=== PATIENT | female | born 1990 | race Caucasian/White ===

== ENCOUNTER 2017-01-29 08:27 | Emergency (ER) | payer SELFPAY ==
[2017-01-29 08:56] LABS: Basophils % (Auto) 0.8 % (0.0-1.8); Eosinophils % (Auto) 5.4 % (0.0-4.3); Hematocrit 42.9 % (30.3-42.9); Hemoglobin 13.9 gm/dl (10.1-14.3); Mean Corpuscular HGB Conc 32 % (30-34); Mean Corpuscular Hemoglobin 28 pg (28-32); Mean Corpuscular Volume 86 fl (79-97); Platelet Count 219 K/mm3 (140-440); Red Blood Count 5.01 M/mm3 (3.65-5.03); Red Cell Distribution Width 13.8 % (13.2-15.2); White Blood Count 6.5 K/mm3 (4.5-11.0)
[2017-01-29 09:21] LABS: Alanine Aminotransferase 14 units/L (7-56); Albumin 4.3 g/dL (3.9-5); Albumin/Globulin Ratio 1.7 %; Alkaline Phosphatase 62 units/L (35-129); Anion Gap 16 mmol/L; Blood Urea Nitrogen 9 mg/dL (7-17); Calcium 8.8 mg/dL (8.4-10.2); Carbon Dioxide 24 mmol/L (22-30); Chloride 102.5 mmol/L (98-107); Glucose 94 mg/dL (65-100); Lipase 30 units/L (13-60); Potassium 4.1 mmol/L (3.6-5.0); Sodium 138 mmol/L (137-145); Total Protein 6.8 g/dL (6.3-8.2)
[2017-01-29 09:33] LABS: Bacteria,Urine 1+ /HPF (Negative); Bilirubin,Urine NEG (Negative); Blood,Urine NEG (Negative); Ketones,Urine NEG (Negative); Leukocyte Esterase,Urine NEG (Negative); Nitrite,Urine NEG (Negative); Protein,Urine <15 mg/dL mg/dL (Negative); Urobilinogen,Urine < 2.0 mg/dL (<2.0)
[2017-01-29] MEDS ORDERED: MORPHINE IV ONE (10:16)
[2017-01-29] MEDS ORDERED: NACL 0.9% 1000 ML 1,000 ML IV ONE (10:16)
[2017-01-29] MEDS ORDERED: TORADOL IV ONE (10:16)
--- NOTE | 2017-01-29 10:17 | Emergency Department Report ---
ED Abdominal Pain HPI - General Chief Complaint: Abdominal Pain Stated Complaint: ABD PAIN Time Seen by Provider: 01/29/17 09:47 Source: patient Mode of arrival: Ambulatory Limitations: No Limitations - History of Present Illness MD Complaint: abdominal pain -: Gradual Location: LLQ Radiation: none Migration to: no migration Severity: moderate Severity scale (0 -10): 8 Quality: cramping, stabbing Consistency: constant Improves With: nothing Worsens With: nothing Associated Symptoms: nausea, constipation. denies: vomiting, diarrhea, fever, chills, dysuria, hematemesis, hematochezia, melena, hematuria, anorexia - Related Data Home Medications Medication Instructions Recorded Confirmed Last Taken SUMAtriptan SUCCINATE [Imitrex] 100 mg PO Q12H PRN 01/29/17 01/29/17 Unknown Allergies Allergy/AdvReac Type Severity Reaction Status Date / Time Penicillins AdvReac Hives Verified 01/29/17 08:34 ED Review of Systems ROS: Stated complaint: ABD PAIN Other details as noted in HPI Comment: All other systems reviewed and negative ED Past Medical Hx - Past Medical History Hx Headaches / Migraines: Yes - Surgical History Additional Surgical History: tonsillectomy - Social History Smoking Status: Never Smoker Substance Use Type: None - Medications Home Medications: Home Medications Medication Instructions Recorded Confirmed Last Taken Type SUMAtriptan SUCCINATE [Imitrex] 100 mg PO Q12H PRN 01/29/17 01/29/17 Unknown History ED Physical Exam - General Limitations: No Limitations General appearance: alert, in no apparent distress - Head Head exam: Present: atraumatic, normocephalic - Eye Eye exam: Present: normal appearance - ENT ENT exam: Present: mucous membranes moist - Neck Neck exam: Present: normal inspection - Respiratory Respiratory exam: Present: normal lung sounds bilaterally. Absent: respiratory distress - Cardiovascular Cardiovascular Exam: Present: regular rate, normal rhythm. Absent: systolic murmur, diastolic murmur, rubs, gallop - GI/Abdominal GI/Abdominal exam: Present: soft, tenderness, normal bowel sounds. Absent: distended, guarding, rebound, rigid - Extremities Exam Extremities exam: Present: normal inspection - Back Exam Back exam: Present: normal inspection - Neurological Exam Neurological exam: Present: alert, oriented X3 - Psychiatric Psychiatric exam: Present: normal affect, normal mood - Skin Skin exam: Present: warm, dry, intact, normal color. Absent: rash ED Course Vital Signs 01/29/17 01/29/17 01/29/17 08:34 09:13 09:20 Temperature 98.3 F Pulse Rate 79 73 Respiratory 17 16 Rate Blood Pressure 118/80 Blood Pressure 117/69 [Left] O2 Sat by Pulse 100 100 99 Oximetry 01/29/17 01/29/17 01/29/17 09:30 09:38 10:00 Temperature Pulse Rate Respiratory 16 Rate Blood Pressure 120/73 132/71 Blood Pressure [Left] O2 Sat by Pulse 99 98 100 Oximetry 01/29/17 01/29/17 01/29/17 10:30 11:00 11:01 Temperature Pulse Rate Respiratory 16 16 Rate Blood Pressure 124/76 124/76 Blood Pressure [Left] O2 Sat by Pulse 99 99 Oximetry 01/29/17 11:30 Temperature Pulse Rate Respiratory Rate Blood Pressure 115/64 Blood Pressure [Left] O2 Sat by Pulse 99 Oximetry ED Medical Decision Making - Lab Data Result diagrams: 01/29/17 08:40 01/29/17 08:40 - Radiology Data Radiology results: report reviewed, image reviewed - Medical Decision Making patient doing well, US with IUP or ectopic at this time , quant level to low at this time, will need a 48h repeat to determine and rule out ectopic , she is hemodynamically stable at this time. Critical care attestation.: If time is entered above; I have spent that time in minutes in the direct care of this critically ill patient, excluding procedure time. ED Disposition Clinical Impression: Disposition: DISCHARGED TO HOME OR SELFCARE Is pt being admited?: No Does the pt Need Aspirin: No Condition: Good Instructions: Abdominal Pain (ED), Ectopic (ED), (ED) Referrals: PRIMARY CARE, [Primary Care Provider] - 3-5 Days Time of Disposition: 13:34
--- NOTE | 2017-01-29 12:51 | Ultrasound Report ---
ULTRASOUND OB LESS THAN 14 WEEKS FETUS ULTRASOUND OB TRANSVAGINAL HISTORY: Left lower quadrant abdominal pain, . TECHNIQUE: Transabdominal and transvaginal ultrasound with color and spectral doppler interrogation. The uterus is retroverted and measures 12 x 7 x 9 cm. No obvious uterine fibroids are appreciated. The endometrial measures 18 mm. There is trace endometrial fluid. The right ovary measures 5.6 x 2.5 x 4.2 cm and contains a 2.3 cm complex area. The left ovary measures 4.4 x 1.9 x 4.3 cm and contains a 3.0 cm complex area There is no evidence for heart tones, gestational sac or intrauterine . IMPRESSION: No intrauterine is demonstrated. The endometrial stripe measures 18 mm. Please note that an ectopic is not entirely excluded at this time. Close interval followup is recommended.
[2017-01-29 15:38] VITALS: BP 118/74
== END 2017-01-29 14:00 | disposition home or self-care (01) ==
LOC: ED 08:27
DX: O00.90 Unspecified ectopic pregnancy without intrauterine pregnancy (principal); R10.32 Left lower quadrant pain; R11.0 Nausea; G43.909 Migraine, unspecified, not intractable, without status migrainosus; Z90.89 Acquired absence of other organs; Z88.0 Allergy status to penicillin
CPT/HCPCS: 36415; 76801; 76817; 80053; 81001; 83690; 84702; 84703; 85025; 96361; 96374; 96375; 99284; J1885; J2270; J7030